=== PATIENT | male | born 1945 | race African-American/Black ===

== ENCOUNTER 2016-12-20 09:57 | Emergency (ER) | payer OTHER ==
[~2016-12-20] VITALS: Ht 182.9 cm; Wt 104.3 kg
--- NOTE | 2016-12-20 11:22 | ED MVC/FALL/TRAUMA COMPLAINT ---
History of Present Illness General Chief Complaint: Lower Extremity Problems Stated Complaint: LEFT LEG PAIN S/P FALL Source: patient, family Exam Limitations: no limitations Vital Signs & Intake/Output Vital Signs & Intake/Output Vital Signs Date Time Temp Pulse Resp B/P Pulse O2 O2 Flow FiO2 Ox Delivery Rate 12/20 1618 97.4 70 18 129/71 97 Room Air 12/20 1150 Room Air Room Air 12/20 1023 97.4 71 20 123/76 97 Room Air Allergies Coded Allergies: NO KNOWN ALLERGIES (12/20/16) Reconcile Medications Amlodipine Besylate 5 MG TABLET 1 TAB PO DAILY HEART (Reported) Carvedilol 12.5 MG TABLET 1 TAB PO BID HEART (Reported) Tamsulosin HCl 0.4 MG CAP.ER.24H 1 CAP PO DAILY PROSTATE (Reported) Triage Note: TRIAGE: PT TO ER WITH [facility] C/C S/P FALL THIS MORNING. STATES HAS CHRONIC L HIP PAIN X YEAR OR SO AND THE PAIN IS NOT ANY WORSE S/P FALL BUT "THE WEAKNESS, I COULDN'T UP". STATES [facility] HELPED HIM GET UP. [facility] STATES PT HAD BENIGN BRAIN TUMOR REMOVED IN 2012 AND HAS HAD PROBLEMS WITH HIS LEFT SIDE EVER SINCE. PT STATES HE GOT WEAK THIS MORNING WHILE WALKING WITH WALKER. WAS ON THE WAY TO THE CAR WHEN HIS LEFT LEG BUCKLED AND HE WENT DOWN. DENIES HEAD STRIKE OR LOC. Triage Nurses Notes Reviewed? yes Onset: Gradual Duration: getting worse Severity: severe Severity Numbers: 8 Loss of Consciousness: no loss of consciousness HPI: Patient is a 71-year-old male with a past medical history of a left-sided brain benign tumor with resection performed in 2012, BPH, hypertension and which he presents emergency room with for concerns of generalized lower extremity weakness. Patient states that since the resection he has had multiple treatments of physical therapy and rehabilitation however approximately 3 months ago the rehabilitation was discontinued and patient and are concerned of worsening gait instability in which she has had one fall in the past with no injury however today patient woke up in his normal state of health was ambulating with a walker as he always does wear his legs "just gave out" when he went to the ground no traumatic injury had occurred patient was helped up by patient was brought into the emergency room by private vehicle. Patient currently denies any pain from the fall however does complain of a chronic history of left-sided flank and back pain. Patient denies any fevers chills headache blurred vision neck pain back pain chest pain cough shortness of breath abdominal pain nausea vomiting night sweats or weight loss. No change in bowel or bladder habits last bowel movement was proximate 3 days ago. No blood no melena noted. Patient does complain of left- sided shoulder pain and states that with left-sided arm movements his pain is made worse. (TEE VALLES) Past History Travel History Traveled to [place] past 21 day No Medical History Any Pertinent Medical History? see below for history Neurological: BENIGN BRAIN TUMOR SX W/ RESIDUAL L SIDED WEAKNESS EENT: NONE Cardiovascular: hypertension Respiratory: NONE Gastrointestinal: NONE Hepatic: NONE Renal: benign prost hyperplasia Musculoskeletal: NONE Psychiatric: NONE Endocrine: NONE Blood Disorders: NONE Cancer(s): NONE ASSESSMENT RN/Reproductive: NONE Surgical History Surgical History: LEFT-SIDED BENIGN TUMOR RESECTION OF BRAIN Psychosocial History What is your primary language Greenlandic Tobacco Use: Never used ETOH Use: denies use Illicit Drug Use: denies illicit drug use Family History Hx Contributory? No (TEE VALLES) Review of Systems Review of Systems Constitutional: Reports: see HPI, malaise, weakness. Eyes: Reports: no symptoms. Ears, Nose, Throat, Mouth: Reports: no symptoms. Respiratory: Reports: no symptoms. Cardiovascular: Reports: no symptoms. Gastrointestinal/Abdominal: Reports: no symptoms. Genitourinary: Reports: no symptoms. Musculoskeletal: Reports: see HPI, joint pain. Skin: Reports: no symptoms, see HPI. Neurological/Psychological: Reports: no symptoms. All Other Systems: Reviewed and Negative (TEE VALLES) Physical Exam Physical Exam General Appearance: no apparent distress, alert Head: atraumatic Eyes: Bilateral: normal appearance, PERRL, EOMI. Ears, Nose, Throat, Mouth: hearing grossly normal, moist mucous membrane, Tympanic normal Neck: normal inspection, supple, full range of motion Respiratory: normal breath sounds, chest non-tender, no respiratory distress Cardiovascular: regular rate/rhythm Peripheral Pulses: 2+ radial (R), 2+ radial (L) Gastrointestinal: normal bowel sounds, soft, non-tender Back: normal inspection, normal range of motion Extremities: normal range of motion Neurologic/Psych: no motor/sensory deficits, awake, alert, oriented x 3 Skin: intact, normal color, warm/dry Comments: Left shoulder decreased active range of motion noted with 60 of flexion abduction with pain Left upper extremity dermatomes intact review pulse +2 Left lower extremity normal inspection dermatomes intact generalized PLUS +4/5 strength noted Right upper extremity lower extremity dermatomes myotomes intact Core Measures ACS in differential dx? No Severe Sepsis Present: No Septic Shock Present: No (AYAH CASE,TEE) Progress Differential Diagnosis: abd injury, C/T/L spine injury, ext injury, ICH, pelvis injury, pnemothorax, spinal cord injury, TUMOR METASTASIS Plan of Care: Orders Procedure Date/time Status Heart Healthy Diet 12/20 D Active PT Evaluate & Treat 12/20 1356 Active URINALYSIS 12/20 1150 Complete COMPREHENSIVE METABOLIC PANEL 12/20 115 Complete CBC WITHOUT DIFFERENTIAL 12/20 1150 Complete Gait Training, 15 Min 12/20 UNK Complete PT EVAL LOW COMPLEX 20 MIN 12/20 UNK Complete Laboratory Tests 12/20/16 1425: Urinalysis LIGHT H, Urine Color YEL, Urine Clarity HAZY H, Urine pH 6.0, Ur Specific [place] 1.025, Urine Protein TRACE H, Urine Ketones NEG, Urine Nitrite POS H, Urine Bilirubin NEG, Urine Urobilinogen 0.2, Ur Leukocyte Esterase SMALL H, Ur Microscopic SEDIMENT EXAMINED, Urine RBC 1-3, Urine WBC 25-50 H, Ur Epithelial Cells RARE, Urine Bacteria PACKD H, Hyaline Casts 3-5 H, Urine Mucus MOD H, Urine Hemoglobin TRACE-LYSED H, Urine Glucose NEG 12/20/16 1259: Anion Gap 6, Estimated GFR > 60, BUN/Creatinine Ratio 23.8, Glucose 92, Calcium 9.2, Total Bilirubin 0.9, AST 21, ALT 41, Alkaline Phosphatase 72, Total Protein 6.8, Albumin 3.7, Globulin 3.1, Albumin/Globulin Ratio 1.2, CBC w Diff NO MAN DIFF REQ, RBC 5.42, MCV 80.3, MCH 26.7 L, RDW 13.9, MPV 7.8, Gran % 49.6, Lymphocytes % 39.3, Monocytes % 7.5, Eosinophils % 2.2, Basophils % 1.4, Absolute Granulocytes 2.5, Absolute Lymphocytes 2.0, Absolute Monocytes 0.4, Absolute Eosinophils 0.1, Absolute Basophils 0.1, PUBS MCHC 33.3 Patient currently is resting comfortable and is no apparent distress and no pain. Blood work is obtained showing unremarkable findings. I discussed with radiologist about concerns of persistent meningioma with concerns of resection performed remotely however I discussed with patient and family member that they believe that the entire tumor was removed completely I discussed patient to follow up with the surgeon who performed the resection and patient was given CT scan and lab work for follow-up. Patient was evaluated by physical therapy noted to have steady gait and felt comfortable the patient is at baseline and felt comfortable for patient to be discharged safely. Discussed patient with case management will evaluate patient was set up home services. Patient and family member agree with disposition and plan and felt comfortable. (AYAH CASE,TEE) Diagnostic Imaging: Viewed by Me: CT Scan. Discussed w/RAD: CT Scan. Radiology Impression: SEE COMMENTS Comments: PATIENT: SAUMYA HANNON PRESENT AGE: 71 PATIENT ACCOUNT NO: [id number] : 43 LOCATION: [facility] ORDERING PHYSICIAN: TEE CASE SERVICE DATE: 12/20/16 EXAM TYPE: CAT - CT ABD & PELVIS W/O IV CONTRAS Addendum: The tip of the ventriculoperitoneal shunt terminates in the upper abdomen between the liver and stomach. Addendum Signed by: ALIX COLLADO MD 12/20/16 1975 EXAMINATION: CT ABDOMEN AND PELVIS WITHOUT CONTRAST CLINICAL INFORMATION: Left flank and hip pain. COMPARISON: None. TECHNIQUE: Multidetector volumetric imaging was performed from the superior aspect of the liver through the pubic symphysis. Sagittal and coronal reformatted images were obtained on the technologist's workstation. DLP: 949.34 mGy-cm FINDINGS: LUNG BASES: There is a 5 mm nodule at the right lung base. No evidence of pneumonia. No pleural effusion. The heart is minimally enlarged. There is no pericardial effusion. LIVER, GALLBLADDER, AND BILIARY TREE: The unenhanced liver is normal in size. No biliary ductal dilatation is present. The gallbladder is physiologically distended. No gallstone. PANCREAS: Normal in size and configuration. SPLEEN: Normal in size and configuration. ADRENAL GLANDS: No adrenal gland mass. KIDNEYS AND URETERS: The kidneys are normal in size. There is a punctate calculus within the interpolar region of the right kidney. There is a 1 cm, poorly circumscribed, hyperdense lesion within the lower pole of the left kidney. It may represent a hemorrhagic cyst. Further evaluation with ultrasound can be performed as clinically indicated. BLADDER: There is a 1.2 cm calculus within the dependent portion of urinary bladder. GASTROINTESTINAL TRACT: The small bowel and colon are normal in caliber. No evidence of bowel obstruction. There is a small hiatal hernia. ABDOMINAL WALL: No significant hernia is appreciated. LYMPH NODES: There are multiple, mildly enlarged inguinal lymph nodes. VASCULAR: No aortic aneurysm. PELVIC VISCERA: The prostate gland is markedly enlarged, measuring 6.8 x 6.2 cm. It indents the inferior margin of the urinary bladder. OSSEOUS STRUCTURES: There are bilateral L5 pars defects. There is minimal retrolisthesis of L5 in relation to S1. IMPRESSION: 1. 5 mm nodule at the right lung base. Repeat chest CT in 6-12 months is recommended. 2. 1.2 cm calculus within the dependent portion of the urinary bladder. 3. Inguinal lymphadenopathy. 4. Marked prostate enlargement. DICTATED BY: ALIX COLLADO MD DATE/TIME DICTATED:12/20/161324 RECEIVER STOCKER:LARY DATE/TIME TRANSCRIBED:12/20/161324 CONFIDENTIAL, DO NOT COPY WITHOUT APPROPRIATE AUTHORIZATION. <Electronically signed in Other Vendor System> SIGNED BY: ALIX COLLADO MD 12/20/16 135 PATIENT: SAUMYA HANNON PRESENT AGE: 71 PATIENT ACCOUNT NO: [id number] : 43 LOCATION: [facility] ORDERING PHYSICIAN: TEE CASE SERVICE DATE: 12/20/16-1150 EXAM TYPE: CAT - CT HEAD WO IV CONTRAST EXAMINATION: CT HEAD WITHOUT CONTRAST CLINICAL INFORMATION: History of benign tumor resection. Now presents with weakness and gait instability. COMPARISON: None TECHNIQUE: Contiguous axial imaging was performed from the skull base to vertex without intravenous administration of contrast. DLP: 600 mGy-cm FINDINGS: The left lower occipital craniotomy changes with a hypodense mass left inferior cerebellum. It measures approximately 2.6 x 2.3 cm with central gland calcification. There is a small defect seen along the posterior aspect of this tumor which continues posteriorly to occipital craniotomy suggestive of previous biopsy tract. There is mild mass effect on the left cerebellar hemisphere but no evidence of edema. There is no acute intra-axial, extra-axial bleed or midline shift. No supratentorial mass seen. There is a right frontal edward hole with a ventriculostomy tube extending into the left frontal horn lateral ventricle. There is no hydrocephalus or ventriculomegaly. There is no midline shift. Bone windows reveal a small parietal bur hole present. No calvarial fracture abnormality seen. The paranasal sinuses and bilateral mastoid air cells are well aerated. IMPRESSION: Left posterior fossa hyperdense mass with central calcification. There is a left occipital craniotomy defect and small defect along the posterior wall of this mass suggestive of previous biopsy. There is mild mass effect on the left cerebral hemisphere. This hyperdense mass in the posterior fossa is most likely a meningioma. There is a right frontal accessed ventriculostomy tube with its tip in the left frontal horn lateral ventricle. There is a left parietal edward hole from previous intervention. There is no acute bleed or infarct seen at this time. Results were discussed with JEFF James by phone at 1:22 PM. PATIENT: SAUMYA HANNON PRESENT AGE: 71 PATIENT ACCOUNT NO: [id number] : 43 LOCATION: [facility] ORDERING PHYSICIAN: TEE CASE SERVICE DATE: 12/20/16 EXAM TYPE: RAD - XRY-SHOULDER COMPLETE-LEFT EXAMINATION: XR SHOULDER, LEFT CLINICAL INFORMATION: Left shoulder pain. COMPARISON: None TECHNIQUE: 3 views of the left shoulder were performed. FINDINGS: The humeral head appears well-seated within the glenoid fossa. There is fusion of the acromioclavicular joint. The visualized portion of the left lung is clear. Visualized soft tissue is unremarkable. No radiopaque foreign structure. IMPRESSION: No fracture or dislocation. There is fusion of the acromioclavicular joint. DICTATED BY: ALIX COLLADO MD DATE/TIME DICTATED:12/20/161301 (TEE VALLES) Departure Departure Disposition: HOME OR SELF CARE Condition: Stable Clinical Impression Primary Impression: Weakness Referrals: SOM NG MD (PCP/Family) Additional Instructions: As discussed continue to always USE YOUR walker for fall prevention. Continue home medications as directed. YOU will receive a phone call to set up home health services at your private residence. If symptoms worsen return to emergency room. Follow-up with YOUR primary care doctor this week for recheck of symptoms. PLEASE PROVIDE copies of blood work and CT scan images for follow- up to your primary care doctor and your surgeon Departure Forms: Customer Survey General Discharge Information (AYAH CASE,TEE) PA/TOUR COORDINATOR Co-Sign Statement Statement: ED Attending supervision documentation- [X] I saw and evaluated the patient. I have also reviewed all the pertinent lab results and diagnostic results. I agree with the findings and the plan of care as documented in the PA's/TOUR COORDINATOR's documentation. [X] I have reviewed the ED Record and agree with the PA's/TOUR COORDINATOR's documentation. [] Additions or exceptions (if any) to the PAs/TOUR COORDINATOR's note and plan are summarized below: [] (STACY DUBON,ROGERS Schroeder)
--- NOTE | 2016-12-20 13:07 | RADIOLOGY REPORT ---
EXAMINATION: XR SHOULDER, LEFT CLINICAL INFORMATION: Left shoulder pain. COMPARISON: None TECHNIQUE: 3 views of the left shoulder were performed. FINDINGS: The humeral head appears well-seated within the glenoid fossa. There is fusion of the acromioclavicular joint. The visualized portion of the left lung is clear. Visualized soft tissue is unremarkable. No radiopaque foreign structure. IMPRESSION: No fracture or dislocation. There is fusion of the acromioclavicular joint.
[2016-12-20 13:08] LABS: ABSOLUTE BASOPHIL COUNT 0.1 /CUMM (0.0-0.2); ABSOLUTE EOSINOPHIL COUNT 0.1 /CUMM (0.0-0.7); ABSOLUTE GRANULOCYTE CT 2.5 /CUMM (1.4-6.5); ABSOLUTE MONOCYTE COUNT 0.4 /CUMM (0.10-0.60); BASOPHIL % 1.4 % (0.0-2.0); EOSINOPHIL % 2.2 % (0-5); GRANULOCYTE % 49.6 % (42.2-75.2); HEMATOCRIT 43.5 % (42-52); MEAN CORPUSCULAR HGB 26.7 PG (27.0-31.0); MEAN CORPUSCULAR HGB CONC 33.3 G/DL (33.0-37.0); MEAN CORPUSCULAR VOLUME 80.3 FL (80.0-94.0); MEAN PLATELET VOLUME 7.8 FL (7.4-10.4); PLATELET COUNT 209 /CUMM (130-400); RBC DISTRIBUTION WIDTH 13.9 % (11.5-14.5); RED BLOOD CELL CT 5.42 /CUMM (4.70-6.10); WHITE BLOOD CELL COUNT 5.1 /CUMM (4.8-10.8)
--- NOTE | 2016-12-20 13:30 | CT SCAN REPORT ---
EXAMINATION: CT HEAD WITHOUT CONTRAST CLINICAL INFORMATION: History of benign tumor resection. Now presents with weakness and gait instability. COMPARISON: None TECHNIQUE: Contiguous axial imaging was performed from the skull base to vertex without intravenous administration of contrast. DLP: 600 mGy-cm FINDINGS: The left lower occipital craniotomy changes with a hypodense mass left inferior cerebellum. It measures approximately 2.6 x 2.3 cm with central gland calcification. There is a small defect seen along the posterior aspect of this tumor which continues posteriorly to occipital craniotomy suggestive of previous biopsy tract. There is mild mass effect on the left cerebellar hemisphere but no evidence of edema. There is no acute intra-axial, extra-axial bleed or midline shift. No supratentorial mass seen. There is a right frontal edward hole with a ventriculostomy tube extending into the left frontal horn lateral ventricle. There is no hydrocephalus or ventriculomegaly. There is no midline shift. Bone windows reveal a small parietal bur hole present. No calvarial fracture abnormality seen. The paranasal sinuses and bilateral mastoid air cells are well aerated. IMPRESSION: Left posterior fossa hyperdense mass with central calcification. There is a left occipital craniotomy defect and small defect along the posterior wall of this mass suggestive of previous biopsy. There is mild mass effect on the left cerebral hemisphere. This hyperdense mass in the posterior fossa is most likely a meningioma. There is a right frontal accessed ventriculostomy tube with its tip in the left frontal horn lateral ventricle. There is a left parietal edward hole from previous intervention. There is no acute bleed or infarct seen at this time. Results were discussed with JEFF James by phone at 1:22 PM.
--- NOTE | 2016-12-20 13:55 | CT SCAN REPORT ---
EXAMINATION: CT ABDOMEN AND PELVIS WITHOUT CONTRAST CLINICAL INFORMATION: Left flank and hip pain. COMPARISON: None. TECHNIQUE: Multidetector volumetric imaging was performed from the superior aspect of the liver through the pubic symphysis. Sagittal and coronal reformatted images were obtained on the technologist's workstation. DLP: 949.34 mGy-cm FINDINGS: LUNG BASES: There is a 5 mm nodule at the right lung base. No evidence of pneumonia. No pleural effusion. The heart is minimally enlarged. There is no pericardial effusion. LIVER, GALLBLADDER, AND BILIARY TREE: The unenhanced liver is normal in size. No biliary ductal dilatation is present. The gallbladder is physiologically distended. No gallstone. PANCREAS: Normal in size and configuration. SPLEEN: Normal in size and configuration. ADRENAL GLANDS: No adrenal gland mass. KIDNEYS AND URETERS: The kidneys are normal in size. There is a punctate calculus within the interpolar region of the right kidney. There is a 1 cm, poorly circumscribed, hyperdense lesion within the lower pole of the left kidney. It may represent a hemorrhagic cyst. Further evaluation with ultrasound can be performed as clinically indicated. BLADDER: There is a 1.2 cm calculus within the dependent portion of urinary bladder. GASTROINTESTINAL TRACT: The small bowel and colon are normal in caliber. No evidence of bowel obstruction. There is a small hiatal hernia. ABDOMINAL WALL: No significant hernia is appreciated. LYMPH NODES: There are multiple, mildly enlarged inguinal lymph nodes. VASCULAR: No aortic aneurysm. PELVIC VISCERA: The prostate gland is markedly enlarged, measuring 6.8 x 6.2 cm. It indents the inferior margin of the urinary bladder. OSSEOUS STRUCTURES: There are bilateral L5 pars defects. There is minimal retrolisthesis of L5 in relation to S1. IMPRESSION: 1. 5 mm nodule at the right lung base. Repeat chest CT in 6-12 months is recommended. 2. 1.2 cm calculus within the dependent portion of the urinary bladder. 3. Inguinal lymphadenopathy. 4. Marked prostate enlargement.
[2016-12-20] MEDS ORDERED: AMLODIPINE BESYL5 M1 PO (14:36)
[2016-12-20] MEDS ORDERED: CARVEDILOL12.5 M1 PO (14:36)
[2016-12-20] MEDS ORDERED: TAMSULOSIN HCL0.4 M1 PO (14:37)
[2016-12-20 16:18] VITALS: BP 129/71
== END 2016-12-20 16:34 ==
LOC: ERH 09:57
PROVIDERS: Physician Assistant
DX: R53.1 Weakness (principal); I10 Essential (primary) hypertension; R10.9 Unspecified abdominal pain; M54.9 Dorsalgia, unspecified; M25.512 Pain in left shoulder
CPT/HCPCS: 73030-LT; 74176; 81001; 97116-GP; 97161-GP

== ENCOUNTER 2017-03-12 17:15 | Emergency (ER) | payer OTHER ==
[~2017-03-12] VITALS: Ht 182.9 cm; Wt 107.0 kg
[~2017-03-12 17:15] MED LIST: AMLODIPINE BESYL5 M1 PO; CARVEDILOL12.5 M1 PO; TAMSULOSIN HCL0.4 M1 PO
[2017-03-12 17:20] VITALS: BP 118/66
--- NOTE | 2017-03-12 17:31 | ED GI/GU/ABDOMINAL COMPLAINT ---
History of Present Illness General Chief Complaint: General Adult Stated Complaint: NO B/M X 4DAYS Source: patient, old records Exam Limitations: no limitations Vital Signs & Intake/Output Vital Signs & Intake/Output Vital Signs Date Time Temp Pulse Resp B/P B/P Pulse O2 O2 Flow FiO2 Mean Ox Delivery Rate 03/12 1720 98.4 77 18 118/66 96 Room Air Allergies Coded Allergies: NO KNOWN ALLERGIES (12/20/16) Reconcile Medications Amlodipine Besylate 5 MG TABLET 1 TAB PO DAILY BP (Reported) Carvedilol 12.5 MG TABLET 1 TAB PO BID HEART/BP (Reported) Docusate Sodium (Colace) 100 MG CAPSULE 2 TAB PO DAILY GI (Reported) Montelukast Sodium 10 MG TABLET 1 TAB PO DAILY ALLERGIES (Reported) Sennosides/Docusate Sodium (Senokot-S Tablet) 8.6 MG-50 MG TABLET 2 TAB PO DAILY GI (Reported) Tamsulosin HCl 0.4 MG CAP.ER.24H 1 CAP PO DAILY PROSTATE (Reported) Triage Note: PT TO TRIAGE FROM WALKIN OFFICE FOR C/O CONSTIPATION x4DAYS. LAST SMALL BM TODAY, C/O LOWER ABD PAIN. +ILEUS ON XRAY AT WALKING. VSS. Triage Nurses Notes Reviewed? yes Onset: Abrupt Duration: day(s): (1), constant Timing: single episode today Quality/Severity: bloating Severity Numbers: 1 Location: generalized abdomen Radiation: no radiation Prior Abdominal Problems: none No Modifying Factors: none Associated Symptoms: denies HPI: 72-year-old male presents to ER for evaluation sent in by an urgent care after he had outpatient x-ray performed today that showed an ileus. The patient states that he's had a small bowel movement today however otherwise has not had a bowel movement in the past 4 days. He has a history of constipation going on for the past 3 months for which he is on senna and Dulcolax. He denies any abdominal pain however states he feels bloated. He has small bowel movement this morning. No black or bloody stools. No fever no chills no nausea no vomiting no urinary complaints no chest pain or shortness of breath. No history of abdominal surgeries in the past (ELSA CASE,TEE) Past History Travel History Traveled to [place] past 21 day No Medical History Any Pertinent Medical History? 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 No (TEE OWENS) Review of Systems Review of Systems Constitutional: Reports: see HPI. All Other Systems: Reviewed and Negative Comments Review of systems: See HPI, All other systems negative. Constitutional, no chills no fever, no malaise no weight loss HEENT: no sore throat no congestion, no ear pain Cardiovascular: No chest pain , no palpitation , no orthopnea Skin: no rashes, no change in skin Respiratory: No dyspnea no cough no sputum GI: No nausea no vomiting, no diarrhea,constipation : No dysuria No hematuria, no frequency, no discharge Muscle skeletal: No joint pain, no joint swelling, no back pain, no neck pain, Neurologic: No numbness no headache Psych: No stress Heme/endocrine: No bruising Immunology: No lymphadenopathy (TEE OWENS) Physical Exam Physical Exam General Appearance: well developed/nourished, alert, awake Gastrointestinal: normal bowel sounds, soft, non-tender Comments: Well-developed well-nourished person in no acute distress HEENT: Normal EENT exam; PERRL, EOMI, HEAD is atraumatic. moist mucous membranes. Neck: Supple, normal range of motion Back: Nontender, no CVA tenderness. Full range of motion Cardiovascular: Regular rate and rhythms no murmurs Respiratory: No respiratory distress. Patient speaking in full complete sentences. Breath sounds clear to auscultation bilaterally: NO W/R/R Abdomen: Soft, nontender nondistended, no appreciable organomegaly. Normal bowel sounds. No rebound/guarding,No ascites. Rectal: Nontender. Heme negative stool. No evidence of impaction No mass/ hemorrhoid, no fissure. Extremity: No edema, full range of motion of extremities Neuro: Alert oriented x3, motor sensory normal. There were no obvious focal neurologic abnormalities. Skin: No appreciable rash on exposed skin, skin is warm and dry. Psych: Mood and affect is normal, memory and judgment is normal. Core Measures ACS in differential dx? No Severe Sepsis Present: No Septic Shock Present: No (ELSA CASE,TEE) Progress Differential Diagnosis: bowel obstruction, colon cancer, diverticulitis, gastritis, hepatitis, ischemic bowel, inflamm bowel dis, SBO Diagnostic Imaging: Viewed by Me: CT Scan. Discussed w/RAD: CT Scan. Radiology Impression: PATIENT: SAUMYA HANNON PRESENT AGE: 72 PATIENT ACCOUNT NO: [id number] : 43 LOCATION: [facility] ORDERING PHYSICIAN: TEE CASE SERVICE DATE: 03/12/17 EXAM TYPE: CAT - CT ABD & PELVIS W IV CONTRAST EXAMINATION: CT ABDOMEN AND PELVIS WITH CONTRAST CLINICAL INFORMATION: 72-year-old man with no bowel movement for 4 days. Possible ileus or obstruction. COMPARISON: 12/20/[address] TECHNIQUE: Multidetector volumetric imaging was performed of the abdomen and pelvis after the IV administration of 95 mL of Optiray 320 intravenous contrast. Sagittal and coronal reformatted images were obtained on the technologist's workstation. DLP: 681 mGy-cm FINDINGS: A 5 mm nodule is again seen at the right lung base. Mild dependent changes are noted at both lung bases. The liver demonstrates 2 adjacent lesions measuring about 2.5 cm in diameter that are hypodense with some areas of puddling peripheral contrast suggesting hemangiomata. The spleen, pancreas, adrenals, gallbladder, and kidneys enhance normally and demonstrate no discrete anatomic abnormality. The tip of a MATERIAL COMBINER shunt is again noted to be coiled in the upper abdomen. Gas and fecal matter is seen throughout mildly prominent loops of large bowel. No dilated small bowel loops are visible. The terminal ileum is not inflamed. The appendix is not clearly identified, although there is no stranding in the right lower quadrant to suggest acute appendicitis. The prostate remains markedly enlarged. A 1.2 cm calcification is again noted in the left lower bladder adjacent to the posterior wall near the left UVJ. Prominent degenerative changes are again noted throughout the lumbar spine. IMPRESSION: No acute intra-abdominal process is seen to explain the patient's symptoms. 2 hypodense lesions in the liver are better seen on today's exam and are most likely to reflect hemangiomata. DICTATED BY: BRUCE BURGOS MD DATE/TIME DICTATED: 03/12/172003 SHOP MANAGER:LARY DATE/TIME TRANSCRIBED:03/12/172003 CONFIDENTIAL, DO NOT COPY WITHOUT APPROPRIATE AUTHORIZATION. <Electronically signed in Other Vendor System> SIGNED BY: LORETTA DUBON,BRUCE 03/12/172014 Initial ED EKG: none (TEE OWENS) Plan of Care: Orders Procedure Date/time Status Add-on Test (ER Only) 03/12 1925 Active CULTURE,URINE 03/12 1859 Active URINALYSIS 03/12 1750 Complete LIPASE 03/12 1744 Complete COMPREHENSIVE METABOLIC PANEL 03/12 1744 Complete CBC WITHOUT DIFFERENTIAL 03/12 1744 Complete AMYLASE 03/12 1744 Complete Laboratory Tests 03/12/171858: Urine Color YEL, Urine Clarity HAZY H, Urine pH 5.5, Ur Specific [place] >= 1.030, Urine Protein TRACE H, Urine Ketones NEG, Urine Nitrite POS H, Urine Bilirubin NEG, Urine Urobilinogen 0.2, Ur Leukocyte Esterase SMALL H, Ur Microscopic SEDIMENT EXAMINED, Urine RBC 1-3, Urine WBC 5-10 H, Ur Epithelial Cells FEW, Urine Bacteria MOD H, Urine Hemoglobin TRACE-INTACT H, Urine Glucose NEG 03/12/171752: Anion Gap 9, Estimated GFR > 60, BUN/Creatinine Ratio 23.8, Glucose 91, Calcium 9.3, Total Bilirubin 0.8, AST 22, ALT 51, Alkaline Phosphatase 65, Total Protein 6.8, Albumin 3.8, Globulin 3.0, Albumin/Globulin Ratio 1.3, Amylase 77, Lipase 40, CBC w Diff NO MAN DIFF REQ, RBC 5.39, MCV 81.8, MCH 26.4 L, RDW 13.6, MPV 7.8, Gran % 67.8, Lymphocytes % 22.5, Monocytes % 7.4, Eosinophils % 1.4, Basophils % 0.9, Absolute Granulocytes 4.5, Absolute Lymphocytes 1.5, Absolute Monocytes 0.5, Absolute Eosinophils 0.1, Absolute Basophils 0.1, PUBS MCHC 32.3 L Microbiology 03/12 1859 URINE ROUT: Urine Culture - RECD Labs ordered old records reviewed Repeat evaluation patient is resting in no apparent distress denies any complaints pending CAT scan discussed them at length all of his lab results the patient has a had a history of dysuria for several years for which she is followed by urology. No hematuria no urgency frequency. Patient was seen and evaluated by Dr. Watson agrees with plan Discussed with the patient at length all of his lab results he again denies any complaints of pain I discussed with the patient at length all of their results. I had an extensive conversation regarding need for close follow up with their primary care physician this week as well as return precautions. I answered all of their questions, they feel comfortable with the plan and follow-up care. (TEE OWENS) Departure Departure Time of Disposition: 2023 Disposition: HOME OR SELF CARE Condition: Stable Clinical Impression Primary Impression: Constipation Secondary Impressions: Liver lesion Referrals: SOM NG MD (PCP/Family) Additional Instructions: Increase the fiber intake, drink plenty of fluids. Follow-up with your primary care physician return to ER anytime sooner with any concerns Departure Forms: Customer Survey General Discharge Information (TEE OWENS) PA/INSTRUCTIONAL PARAPROFESSIONAL Co-Sign Statement Statement: ED Attending supervision documentation- [X] I saw and evaluated the patient. I have also reviewed all the pertinent lab results and diagnostic results. I agree with the findings and the plan of care as documented in the PA's/INSTRUCTIONAL PARAPROFESSIONAL's documentation. [] I have reviewed the ED Record and agree with the PA's/INSTRUCTIONAL PARAPROFESSIONAL's documentation. [] Additions or exceptions (if any) to the PAs/INSTRUCTIONAL PARAPROFESSIONAL's note and plan are summarized below: [] (TYE DUBON,ANNEMARIE Chi)
[2017-03-12] MEDS ORDERED: MONTELUKAST SOD10 M1 PO (17:42)
[2017-03-12] MEDS ORDERED: SENOKOT-S TABL1 EACH PO (17:43)
[2017-03-12] MEDS ORDERED: COLACE100 M1 PO (17:44)
[2017-03-12 18:00] LABS: ABSOLUTE BASOPHIL COUNT 0.1 /CUMM (0.0-0.2); ABSOLUTE EOSINOPHIL COUNT 0.1 /CUMM (0.0-0.7); ABSOLUTE GRANULOCYTE CT 4.5 /CUMM (1.4-6.5); ABSOLUTE LYMPH COUNT 1.5 /CUMM (1.2-3.4); ABSOLUTE MONOCYTE COUNT 0.5 /CUMM (0.10-0.60); BASOPHIL % 0.9 % (0.0-2.0); EOSINOPHIL % 1.4 % (0-5); GRANULOCYTE % 67.8 % (42.2-75.2); HEMATOCRIT 44.1 % (42-52); MEAN CORPUSCULAR HGB 26.4 PG (27.0-31.0); MEAN CORPUSCULAR HGB CONC 32.3 G/DL (33.0-37.0); MEAN CORPUSCULAR VOLUME 81.8 FL (80.0-94.0); MEAN PLATELET VOLUME 7.8 FL (7.4-10.4); PLATELET COUNT 228 /CUMM (130-400); RBC DISTRIBUTION WIDTH 13.6 % (11.5-14.5); RED BLOOD CELL CT 5.39 /CUMM (4.70-6.10); WHITE BLOOD CELL COUNT 6.7 /CUMM (4.8-10.8)
--- NOTE | 2017-03-12 20:15 | CT SCAN REPORT ---
EXAMINATION: CT ABDOMEN AND PELVIS WITH CONTRAST CLINICAL INFORMATION: 72-year-old man with no bowel movement for 4 days. Possible ileus or obstruction. COMPARISON: 12/20/[address] TECHNIQUE: Multidetector volumetric imaging was performed of the abdomen and pelvis after the IV administration of 95 mL of Optiray 320 intravenous contrast. Sagittal and coronal reformatted images were obtained on the technologist's workstation. DLP: 681 mGy-cm FINDINGS: A 5 mm nodule is again seen at the right lung base. Mild dependent changes are noted at both lung bases. The liver demonstrates 2 adjacent lesions measuring about 2.5 cm in diameter that are hypodense with some areas of puddling peripheral contrast suggesting hemangiomata. The spleen, pancreas, adrenals, gallbladder, and kidneys enhance normally and demonstrate no discrete anatomic abnormality. The tip of a HEALTHCARE NETWORK CONSULTANT shunt is again noted to be coiled in the upper abdomen. Gas and fecal matter is seen throughout mildly prominent loops of large bowel. No dilated small bowel loops are visible. The terminal ileum is not inflamed. The appendix is not clearly identified, although there is no stranding in the right lower quadrant to suggest acute appendicitis. The prostate remains markedly enlarged. A 1.2 cm calcification is again noted in the left lower bladder adjacent to the posterior wall near the left UVJ. Prominent degenerative changes are again noted throughout the lumbar spine. IMPRESSION: No acute intra-abdominal process is seen to explain the patient's symptoms. 2 hypodense lesions in the liver are better seen on today's exam and are most likely to reflect hemangiomata.
== END 2017-03-12 20:36 ==
LOC: ERH 17:15
PROVIDERS: Physician Assistant Medical
DX: K59.00 Constipation, unspecified (principal); K76.9 Liver disease, unspecified
CPT/HCPCS: 74177; 81001; 87086